=== PATIENT | male | born 1945 | race African-American/Black ===

== ENCOUNTER 2021-04-30 16:01 | Outpatient (CLI) | payer MEDICARE, OTHER, SELFPAY ==
--- NOTE | 2021-04-30 16:19 | RAD_ITS ---
STUDY: X-RAY - RIGHT SHOULDER REASON FOR EXAM: Male, 75 years old. Shoulder pain. TECHNIQUE: 4 view(s) of the shoulder. COMPARISON: None. FINDINGS: Osteopenia. Normal glenohumeral articulation. Mild arthrosis of the AC joint. Small subacromial spur. Normal humeral head and visualized proximal humerus. The soft tissue structures are unremarkable. Normal visualized pulmonary apex. RAD/Shoulder min 2 Views IMPRESSION: Osteopenia with mild arthrosis of the AC joint and small subacromial spur. No acute abnormality or erosive changes. Electronically Signed: Doyle Neil MD at 9:46 EST , Service support ,
--- NOTE | 2021-04-30 16:22 | RAD_ITS ---
STUDY: X-RAY - LEFT SHOULDER REASON FOR EXAM: Male, 75 years old. SHOULDER PAIN TECHNIQUE: 4 view(s) of the shoulder. COMPARISON: None. FINDINGS: Normal glenohumeral articulation. There is mild degenerative arthrosis of the acromioclavicular joint without inferior osseous spur formation. Normal acromion. Normal humeral head and visualized proximal humerus. The soft tissue structures are unremarkable. There is no demonstrated fracture. Normal visualized pulmonary apex. RAD/Shoulder min 2 Views IMPRESSION: 1. Mild AC joint osteoarthritis Electronically Signed: Ponce Miles MD at 16:46 EST , Service support ,
== END 2021-04-30 23:59 | disposition short-term general hospital (02) ==
PROVIDERS: PCP Family Medicine; Referring Provider Anesthesiology Pain Medicine; Visit Provider Anesthesiology Pain Medicine
DX: M25.512 Pain in left shoulder (principal); M25.511 Pain in right shoulder
CPT/HCPCS: 73030

== ENCOUNTER 2021-07-29 14:46 | Outpatient (CLI) | payer MEDICARE, OTHER, SELFPAY ==
[2021-07-29 16:18] LABS: Amphetamine Urine VISTA NEGATIVE (<1000 ng/mL); Barbiturate Urine VISTA NEGATIVE (< 200 ng/mL); Benzodiazepine Urine VISTA NEGATIVE (< 200 ng/mL); Cocaine Urine VISTA NEGATIVE (< 300 ng/mL); Ecstacy Urine VISTA NEGATIVE (< 500 ng/mL); Methadone Urine VISTA NEGATIVE (< 300 ng/mL); PCP Urine VISTA NEGATIVE (< 25 ng/mL); THC Urine VISTA NEGATIVE (< 50 ng/mL); Vista UDS pH Range 5
== END 2021-07-29 23:59 | disposition home or self-care (01) ==
PROVIDERS: PCP Family Medicine; Visit Provider Anesthesiology Pain Medicine
DX: F11.20 Opioid dependence, uncomplicated (principal)
CPT/HCPCS: 80307

== ENCOUNTER 2021-08-21 17:21 | Emergency (ER) | payer MEDICARE, OTHER, SELFPAY ==
[2021-08-21 17:22] VITALS: BP 128/50; PULSE 41; RESP 16; TEMP 36.2; O2SAT 99; BMI 31.7
[2021-08-21 18:06] VITALS: BP 115/60; PULSE 44; RESP 17; O2SAT 97
--- NOTE | 2021-08-21 18:42 | EX.ED.DYSGE1 ---
HPI History of Present Illness Chief Complaint: Overdose Informant: patient and spouse/S.O. Onset/Context/Timing Onset: Today Context: Gradual Onset Timing: Continuous Quality: Pressure Location: Chest Worsened by: Nothing Relieved by: Nothing Narrative Narrative: Patient presents after taking an overdose of his medications today. Patient states that he noticed he missed yesterday's medications so he took yesterday's doses and today's doses together. states patient has been sleepy throughout the day today. noticed that his heart rate was low and he was feeling weak and tired. Patient admits to some pressure in his chest. Patient admits to some shortness of breath. Patient denies any nausea or vomiting. Patient took an extra dose of hydralazine 100 mg, clonidine 0.3 mg, nifedipine 90 mg, atorvastatin 40 mg, hydroxychloroquine 200 mg, chlorthalidone 25 mg, and metoprolol 100 mg. [facility] Medical History HTN (hypertension) Home Medications adalimumab 40 mg/0.8 mL subcutaneous pen kit 40 mg SUBCUT QWEEK 07/07/21 [History Last Taken Unknown] atorvastatin 40 mg tablet 40 mg PO DAILY 07/07/21 [History Last Taken Unknown] chlorthalidone 25 mg tablet 25 mg PO DAILY 07/07/21 [History Last Taken Unknown] clonidine HCl 0.3 mg tablet 0.3 mg PO TID tab 07/07/21 [History Last Taken Unknown] clopidogrel 75 mg tablet 75 mg PO DAILY 07/07/21 [History Last Taken Unknown] cyclobenzaprine 10 mg tablet 10 mg PO TID 07/07/21 [History Last Taken Unknown] gabapentin 300 mg capsule 300 mg PO QHS 07/07/21 [History Last Taken Unknown] hydralazine 100 mg tablet 100 mg PO TID 07/07/21 [History Last Taken Unknown] metoprolol succinate 100 mg tablet,extended release 24 hr 100 mg PO DAILY 07/07/21 [History Last Taken Unknown] oxycodone-acetaminophen 5 mg-325 mg tablet 2 tablet PO TID PRN 07/07/21 [History Last Taken Unknown] potassium chloride 20 mEq tablet,extended release(part/cryst) 20 meq PO DAILY 07/07/21 [History Last Taken Unknown] trazodone 100 mg tablet 100 tablet PO QHS 07/07/21 [History Last Taken Unknown] nifedipine 90 mg PO DAILY 08/21/21 [History Last Taken Unknown] Allergy/AdvReac Type Severity Reaction Status Date / Time Penicillins Allergy rash and Verified 08/21/21 17:25 itching Family History Father Hypertension Mother Hypertension Surgical History History of back surgery History of neck surgery Social History Smoking Status: Never smoker ROS ROS ED Constitutional Constitutional ED: Denies chills or fever(s) Eyes Eyes: Denies blurry vision or change in vision ENT ENT ED: Denies rhinorrhea or sore throat Cardiovascular Cardiovascular: Reports chest pain; Denies palpitations Respiratory/Chest Respiratory/Chest: Reports dyspnea; Denies cough Gastrointestinal Gastrointestinal: Denies nausea or vomiting Genitourinary Genitourinary ED: Denies dysuria or hematuria Musculoskeletal Musculoskeletal: Denies back pain or neck pain Integumentary Denies abscess or rash Neurologic Neurologic: Reports headache(s) and weakness Allergic/Immunologic Allergic/Immunologic ED: Denies mouth swelling or urticaria EXAM Physical Exam Const Vital Signs: 08/21/21 17:22 08/21/21 18:06 Temperature 97.2 F L Temperature Source Temporal Pulse Rate 41 L 44 L Respiratory Rate 16 17 Blood Pressure 128/50 H 115/60 Blood Pressure Mean 76 78 Pulse Ox 99 97 Oxygen Delivery Method Room Air Room Air Positive well nourished and well developed General Appearance ED: well developed HEENT Reports moist mucous membranes Neck supple and no JVD Resp normal respiratory effort and clear to auscultation bilaterally Cardio regular rate, regular rhythm and no murmurs GI normal to inspection, nondistended, normoactive bowel sounds and non-tender Palpation: soft Extremity normal to inspection General Extremety ED: Negative for edema or tenderness General Extremity: Negative for edema Neuro oriented x3, CN's II-XII intact bilaterally and no sensory deficits noted Sensorium / Orientation: alert Motor Exam: strength 5/5 throughout Psych mental status grossly normal Psych Narrative: Patient is somewhat sleepy on examination but awakens easily and answers questions appropriately. Skin no rashes or lesions noted MDM MDM MDM Narrative Medical decision making narrative: Patient was placed on continuous cardiac and pulse oximeter monitors. Patient had no arrhythmias other than sinus bradycardia. CBC shows a mild anemia with a hemoglobin of 10.7 and hematocrit 32.3. Comprehensive metabolic profile was obtained. BUN was 32 and creatinine was 2.49. These are consistent with prior results reviewed from [facility]. Patient is feeling better and is more awake and alert on reevaluation. Patient was instructed to continue his medications as prescribed starting tomorrow morning. Patient was instructed to follow-up with his primary care physician in 3 to 5 days. Patient understood and was agreeable with the plan. All questions were answered. Lab Data Attestation: I reviewed the patient's lab results. Labs: Laboratory Results - last 24 hr 08/21/21 08/21/21 18:00 18:00 WBC 7.6 RBC 3.98 L Hgb 10.7 L Hct 32.3 L MCV 81.2 MCH 26.9 L MCHC 33.1 RDW Std Deviation 43.1 RDW Coeff of Naif 14.6 Plt Count 300 MPV 10.5 Immature Gran % (Auto) 0.300 Neut % (Auto) 41.5 L Lymph % (Auto) 36.2 [place] % (Auto) 18.3 H Eos % (Auto) 2.9 Baso % (Auto) 0.8 Absolute Neuts (auto) 3.2 Absolute Lymphs (auto) 2.76 Nucleated RBC % 0 Sodium 140 Potassium 4.8 Chloride 112 H Carbon Dioxide 24.0 Anion Gap 4 L BUN 32 H Creatinine 2.49 H Estim Creat Clear Calc 25.24 Est GFR (MDRD) Af Amer 33 L Est GFR (MDRD) Non-Af 27 L BUN/Creatinine Ratio 12.9 Glucose 102 Calcium 9.4 Total Bilirubin 0.10 L AST 13 L ALT 20 Alkaline Phosphatase 39 L Troponin I High Sens 12 Total Protein 7.8 Albumin 3.3 Globulin 4.5 H Albumin/Globulin Ratio 0.7 L Discharge Plan Triage Chief Complaint: Overdose ED Provider: Cricket Tol[place] Dx/Rx/DC Orders Clinical Impression: Accidental medication overdose, Bradycardia, sinus Instructions: ED Accidental Ingestion ... Prescriptions: No Action clopidogrel 75 mg tablet 75 mg PO DAILY RF: 0 gabapentin 300 mg capsule 300 mg PO QHS RF: 0 metoprolol succinate 100 mg tablet extended release 24 hr 100 mg PO DAILY RF: 0 atorvastatin [Lipitor] 40 mg tablet 40 mg PO DAILY RF: 0 chlorthalidone 25 mg tablet 25 mg PO DAILY RF: 0 oxycodone-acetaminophen 5-325 mg tablet 2 tablet PO TID PRN (Reason: Back Pain) RF: 0 cyclobenzaprine 10 mg tablet 10 mg PO TID RF: 0 potassium chloride 20 mEq tablet,ER particles/crystals 20 meq PO DAILY RF: 0 trazodone 100 mg tablet 100 tablet PO QHS RF: 0 hydralazine 100 mg tablet 100 mg PO TID RF: 0 clonidine HCl 0.3 mg tablet 0.3 mg PO TID RF: 0 Humira Pen 40 mg/0.8 mL pen injector kit 40 mg subcut QWEEK RF: 0 nifedipine 90 mg Tablet Extended Release 90 mg PO DAILY RF: 0 Primary Care Provider: Jarvis Hednrix Referrals: Jarvis Hendrix MD [Primary Care Provider] - 3-5 Days Disposition Disposition: Home, Self Care
--- NOTE | 2021-08-21 18:46 | EKG12_ITS ---
Test Reason : CHEST PRESSURE Blood Pressure : / mmHG Vent. Rate : 044 BPM Atrial Rate : 044 BPM P-R Int : 152 ms QRS Dur : 102 ms QT Int : 464 ms P-R-T Axes : 024 005 004 degrees QTc Int : 396 ms Marked sinus bradycardia with sinus arrhythmia Abnormal ECG Confirmed by GA TIDWELL, POOJA ([id number]), advertising editor YESSENIA KHALIL ([id number]) on 08/25/2021 1:46:35 PM Referred By: AURA/CAROL Confirmed By:POOJA KOROMA MD
[2021-08-21 18:55] LABS: Absolute Lymphocyte Count 2.76 X10^3/uL (0.83-4.51); Absolute Neutrophil Count 3.2 X10^3/uL (2.0-7.7); Basophil# 0.06 X10^3/uL; Basophil% 0.8 % (0-1); Eosinophil# 0.22 X10^3/uL; Eosinophils% 2.9 % (0-5); Hematocrit 32.3 % (40-54); Hemoglobin 10.7 g/dL (13.0-16.5); Lymphocyte # 2.76 X10^3/ul (0.83-4.51); Lymphocyte % 36.2 % (19-41); Mean Corp Hgb Conc 33.1 g/dL (32-36); Mean Corpuscular Hgb 26.9 pg (27.0-32.0); Mean Corpuscular Volume 81.2 fL (80-94); Mean Platelet Vol. 10.5 fl (6.2-12.0); Monocyte% 18.3 % (0-10); NRBC Flagged by Analyzer 0 % (0-5); Neutrophil # 3.17 X10^3/uL (2.7-7.7); Neutrophil % 41.5 % (47-70); Platelet Count 300 K/mm3 (150-450); RBC Distribution Width CV 14.6 % (11.6-14.6); RBC Distribution Width SD 43.1 fl (35.1-43.9); Red Blood Count 3.98 M/mm3 (4.6-6.2); White Blood Count 7.6 K/mm3 (4.4-11.0)
[2021-08-21 19:13] LABS: ALB/GLOB Ratio 0.7 RATIO (0.9-2.4); AST(SGOT) 13 U/L (15-37); Alanine Aminotransfer ALT/SGPT 20 U/L (16-61); Albumin, Serum 3.3 g/dL (3.2-5.0); Alkaline Phosphatase 39 U/L (45-117); Anion Gap 4 (5-15); BUN 32 mg/dL (7-18); BUN/Creat Ratio 12.9 RATIO (10-20); Calcium,Total 9.4 mg/dL (8.5-10.1); Chloride 112 mmol/L (98-107); Creatinine, Serum 2.49 mg/dL (0.70-1.30); EST Glomerular Filtration Rate 27 mL/min (>60); Est Glom Filt Rate - Afr Amer 33 mL/min (>60); Estimated Creatinine Clearance 25.24 ml/min; Globulin 4.5 g/dL (2.2-4.2); Glucose 102 mg/dL (74-106); Potassium 4.8 mmol/L (3.5-5.1); Protein, Total 7.8 g/dL (6.4-8.2); Sodium Level 140 mmol/L (136-145); Troponin-I HS 12 pg/mL (3.0-78.0)
[2021-08-21 21:38] VITALS: BP 110/60; PULSE 51; RESP 16; O2SAT 97
== END 2021-08-21 21:38 | disposition home or self-care (01) ==
PROVIDERS: Emergency Provider Emergency Medicine; PCP Family Medicine; Visit Provider Emergency Medicine
DX: T50.911A Poisoning by multiple unspecified drugs, medicaments and biological substances, accidental (unintentional), initial encounter (principal); T46.5X1A Poisoning by other antihypertensive drugs, accidental (unintentional), initial encounter; T46.1X1A Poisoning by calcium-channel blockers, accidental (unintentional), initial encounter; T46.6X1A Poisoning by antihyperlipidemic and antiarteriosclerotic drugs, accidental (unintentional), initial encounter; T37.8X1A Poisoning by other specified systemic anti-infectives and antiparasitics, accidental (unintentional), initial encounter; T50.2X1A Poisoning by carbonic-anhydrase inhibitors, benzothiadiazides and other diuretics, accidental (unintentional), initial encounter; T44.7X1A Poisoning by beta-adrenoreceptor antagonists, accidental (unintentional), initial encounter; R00.1 Bradycardia, unspecified; I10 Essential (primary) hypertension; Z79.899 Other long term (current) drug therapy
CPT/HCPCS: 80053; 84484; 85025; 93005; 99284; A4216